=== PATIENT | female | born 1965 | race African-American/Black ===

== ENCOUNTER 2017-05-15 08:34 | Inpatient (IN) | payer MEDICAID ==
[~2017-05-15] VITALS: Ht 165.1 cm; Wt 102.3 kg
[2017-05-15] MEDS ORDERED: LISI-167 PO (09:26)
[2017-05-15] MEDS ORDERED: FUROSEMIDE 20 MG TABLET PO ONE (09:26)
[2017-05-15] MEDS ORDERED: FUROSEMIDE 20 MG TABLET ONE (09:32)
[2017-05-15 09:38] LABS: BASOPHILS # (AUTO) 0.02 x10^3/uL (0-0.1); BASOPHILS % (AUTO) 0 % (0-1); EOSINOPHILS # (AUTO) 0.17 x10^3/uL (0-0.4); EOSINOPHILS % (AUTO) 3 % (1-7); LYMPHOCYTES % (AUTO) 35 % (22-44); MD NO; MEAN CORPUSCULAR HGB CONC 32.7 g/dL (32.4-35.8); MEAN CORPUSCULAR VOLUME 85.4 fL (80-100); MONOCYTES # (AUTO) 0.37 x10^3/uL (0.2-0.8); MONOCYTES % (AUTO) 6 % (2-9); NEUTROPHILS # (AUTO) 3.24 x10^3/uL (1.8-6.8); NEUTROPHILS % (AUTO) 56 % (42-75); PLATELET COUNT 266 x10^3/uL (130-400); RED BLOOD COUNT 4.23 x10^6/uL (3.82-5.3); RED CELL DISTRIBUTION WIDTH 14.8 % (9.6-15.2)
[2017-05-15 09:50] LABS: ALBUMIN 2.9 g/dL (3.4-5.0); ANION GAP 6 mmol/L (5-15); CALCIUM 8.6 mg/dL (8.5-10.1); CHLORIDE 106 mmol/L (98-107); CREATININE 1.33 mg/dL (0.55-1.02)
[2017-05-15 10:02] LABS: MICROSCOPIC INDICATED
[2017-05-15 10:03] LABS: CULTURE INDICATED? YES
[2017-05-15] MEDS ORDERED: CEFTRIAXONE PMX 1GM/50ML 50 ML IV ONE (12:39)
[2017-05-15] MEDS ORDERED: CEFTRIAXONE PMX 1GM/50ML 50 ML ONE (12:50)
[2017-05-15] MEDS ORDERED: SODIUM CHLORIDE 0.9% 1,000 ML IV SCH (12:59)
[2017-05-15] MEDS ORDERED: POLYETHYLENE GLYCOL 17 GM PACKET PO PRN (13:00)
[2017-05-15] MEDS ORDERED: ONDANSETRON 2MG/ML, 2ML IVPush PRN (13:00)
[2017-05-15] MEDS ORDERED: LABETALOL 5MG/ML, 20ML IVPush PRN (13:00)
[2017-05-15] MEDS ORDERED: DOCUSATE 100 MG CAPSULE PO PRN (13:00)
[2017-05-15] MEDS ORDERED: morphine SULFATE 10 MG/ML, 1ML IVPush PRN (13:00)
[2017-05-15] MEDS: CEFTRIAXONE PMX 1GM/50ML 50 ML IV SCH (13:07)
[2017-05-15] MEDS ORDERED: ENOXAPARIN 40 MG/0.4 ML ONE (13:11)
[2017-05-15] MEDS: ENOXAPARIN 40 MG/0.4 ML SQ SCH (13:33)
[2017-05-15 14:45] VITALS: BP 148/82
[2017-05-15 15:50] VITALS: BP 168/98
[2017-05-15] MEDS: METOPROLOL TARTRATE 25 MG TABLET PO SCH (18:36)
[2017-05-15 19:52] VITALS: BP 117/73
[2017-05-16] VITALS (7 sets, daily range): BP systolic 94–171; BP diastolic 63–98
[2017-05-16] MEDS: ACETAMINOPHEN 325 MG TABLET PO PRN (00:22)
[2017-05-16] MEDS: METOPROLOL TARTRATE 25 MG TABLET PO SCH ×2 (04:22→17:55)
[2017-05-16 05:21] LABS: ANION GAP 5 mmol/L (5-15); CALCIUM 8.3 mg/dL (8.5-10.1); CHLORIDE 110 mmol/L (98-107)
[2017-05-16 05:32] LABS: CREATININE 1.09 mg/dL (0.55-1.02)
[2017-05-16] MEDS ORDERED: MIDAZOLAM 1 MG/ML, 5ML ONE (07:34)
[2017-05-16] MEDS ORDERED: NALOXONE 1 MG/ML, 2ML ONE (07:34)
[2017-05-16] MEDS ORDERED: FENTANYL PF 100 MCG/2ML ONE (07:34)
[2017-05-16] MEDS ORDERED: FLUMAZENIL 0.1 MG/1 ML, 5ML ONE (07:34)
[2017-05-16] MEDS: SENNA/DOCUSATE TABLET PO SCH (10:31)
[2017-05-16] MEDS: CEFTRIAXONE PMX 1GM/50ML 50 ML IV SCH (12:43)
[2017-05-16] MEDS: ENOXAPARIN 40 MG/0.4 ML SQ SCH (13:00)
[2017-05-17 01:12] VITALS: BP 105/66
[2017-05-17 05:42] VITALS: BP 121/75
[2017-05-17] MEDS: METOPROLOL TARTRATE 25 MG TABLET PO SCH ×2 (05:43→17:18)
[2017-05-17 07:05] VITALS: BP 120/79
[2017-05-17] MEDS: SENNA/DOCUSATE TABLET PO SCH (08:25)
[2017-05-17] MEDS: ENOXAPARIN 40 MG/0.4 ML SQ SCH (13:20)
[2017-05-17] MEDS: CEFTRIAXONE PMX 1GM/50ML 50 ML IV SCH (13:20)
[2017-05-17] MEDS: ACETAMINOPHEN 325 MG TABLET PO PRN (13:25)
[2017-05-17] MEDS ORDERED: MORPHINE SULFATE 4 MG/ML, 1ML IVPush PRN (14:26)
[2017-05-17 16:51] VITALS: BP_SYST 147; BP_SYST 152; BP_DIAS 83; BP_DIAS 87
[2017-05-17 19:09] VITALS: BP 158/83
[2017-05-18 01:04] VITALS: BP 171/78
[2017-05-18] MEDS: METOPROLOL TARTRATE 25 MG TABLET PO SCH ×2 (06:13→18:15)
[2017-05-18] MEDS ORDERED: MIDAZOLAM 1 MG/ML, 2ML ONE (07:31)
[2017-05-18] MEDS ORDERED: FENTANYL PF 100 MCG/2ML ONE ×2 (07:31→09:30)
[2017-05-18 07:35] VITALS: BP 181/110
[2017-05-18] MEDS ORDERED: DEXAMETHASONE 4 MG/ML, 1ML ONE (07:35)
[2017-05-18] MEDS ORDERED: PROPOFOL 10 MG/ML, 20ML ONE (07:35)
[2017-05-18] MEDS ORDERED: OXYcodone 5 MG/5 ML ORAL.SOL UDC PO PRN (08:00)
[2017-05-18] MEDS ORDERED: PROMETHAZINE 25 MG/ML, 1ML IV PRN (08:00)
[2017-05-18] MEDS ORDERED: morphine SULFATE 10 MG/ML, 1ML IV PRN (08:00)
[2017-05-18] MEDS ORDERED: ONDANSETRON 2MG/ML, 2ML IVPush PRN (08:00)
[2017-05-18] MEDS ORDERED: ACETAMINOPHEN 325 MG TABLET PO PRN (08:00)
[2017-05-18] MEDS ORDERED: MIDAZOLAM 1 MG/ML, 2ML IV PRN (08:00)
[2017-05-18] MEDS ORDERED: LORazepam 2 MG/ML, 1ML IVPush PRN (08:00)
[2017-05-18] MEDS ORDERED: ALBUTEROL/IPRATROPIUM 2.5MG/0.5MG, 3 ML NPPB PRN (08:00)
[2017-05-18] MEDS ORDERED: DIAZEPAM 5 MG/ML, 2ML IVPush PRN (08:00)
[2017-05-18] MEDS: SENNA/DOCUSATE TABLET PO SCH (09:00)
[2017-05-18] MEDS ORDERED: GADOBUTROL 10 MMOL/10 ML PFS ONE (09:04)
[2017-05-18] MEDS ORDERED: LABETALOL 5MG/ML, 20ML ONE (09:05)
[2017-05-18] MEDS: LABETALOL 5MG/ML, 20ML IV PRN ×2 (09:07→09:16)
[2017-05-18] MEDS ORDERED: hydrALAzine 20 MG/ML, 1ML ONE ×2 (09:20→09:46)
[2017-05-18] MEDS: hydrALAzine 20 MG/ML, 1ML IV PRN ×3 (09:22→09:48)
[2017-05-18] MEDS: FENTANYL PF 100 MCG/2ML IV PRN ×2 (09:31→09:37)
[2017-05-18] MEDS ORDERED: ACETAMINOPHEN 650 MG/20.3 ML UDC ONE (09:32)
[2017-05-18] MEDS: CEFTRIAXONE PMX 1GM/50ML 50 ML IV SCH (13:28)
[2017-05-18] MEDS: HYDROcodone/APAP 5/325 TABLET PO PRN ×2 (13:28→18:15)
[2017-05-18] MEDS: ENOXAPARIN 40 MG/0.4 ML SQ SCH (13:28)
[2017-05-18 14:04] VITALS: BP 124/70
[2017-05-18 19:07] VITALS: BP 122/75
[2017-05-19 01:36] VITALS: BP 143/82
[2017-05-19 06:15] VITALS: BP 160/96
[2017-05-19] MEDS: METOPROLOL TARTRATE 25 MG TABLET PO SCH ×2 (06:16→18:13)
[2017-05-19 07:40] VITALS: BP 162/88
[2017-05-19] MEDS: SENNA/DOCUSATE TABLET PO SCH (09:22)
[2017-05-19] MEDS: CEFTRIAXONE PMX 1GM/50ML 50 ML IV SCH (13:20)
[2017-05-19] MEDS: ENOXAPARIN 40 MG/0.4 ML SQ SCH (13:20)
[2017-05-19 15:44] VITALS: BP 183/103
[2017-05-19 16:28] VITALS: BP 176/104
[2017-05-19] MEDS: LISINOPRIL 10 MG TABLET PO SCH (17:23)
[2017-05-19 20:24] VITALS: BP 168/98
[2017-05-20 02:16] VITALS: BP 170/80
[2017-05-20 06:02] VITALS: BP 174/81
[2017-05-20] MEDS: METOPROLOL TARTRATE 25 MG TABLET PO SCH ×2 (06:04→17:46)
[2017-05-20] MEDS: AMLODIPINE 5 MG TABLET PO SCH (11:12)
[2017-05-20] MEDS: LISINOPRIL 10 MG TABLET PO SCH (11:12)
[2017-05-20] MEDS: SENNA/DOCUSATE TABLET PO SCH (11:14)
[2017-05-20] MEDS: ENOXAPARIN 40 MG/0.4 ML SQ SCH (13:00)
[2017-05-20] MEDS: CEFTRIAXONE PMX 1GM/50ML 50 ML IV SCH (13:16)
[2017-05-20 17:15] VITALS: BP 144/82
[2017-05-20 19:13] VITALS: BP 137/78
[2017-05-21 01:10] VITALS: BP 156/87
[2017-05-21 05:38] LABS: ALBUMIN 2.4 g/dL (3.4-5.0); ANION GAP 7 mmol/L (5-15); CHLORIDE 108 mmol/L (98-107)
[2017-05-21] MEDS: METOPROLOL TARTRATE 25 MG TABLET PO SCH ×2 (06:17→18:09)
[2017-05-21 06:40] VITALS: BP 189/100
[2017-05-21 07:50] VITALS: BP 178/103
[2017-05-21] MEDS: SENNA/DOCUSATE TABLET PO SCH (10:12)
[2017-05-21] MEDS: LISINOPRIL 10 MG TABLET PO SCH (10:12)
[2017-05-21] MEDS: AMLODIPINE 5 MG TABLET PO SCH (10:13)
[2017-05-21 10:25] VITALS: BP 150/84
[2017-05-21 12:05] VITALS: BP 164/88
[2017-05-21] MEDS: CEFTRIAXONE PMX 1GM/50ML 50 ML IV SCH (14:16)
[2017-05-21] MEDS: ENOXAPARIN 40 MG/0.4 ML SQ SCH (14:16)
[2017-05-21 18:55] VITALS: BP 162/94
[2017-05-22 01:10] VITALS: BP 167/85
[2017-05-22] MEDS: METOPROLOL TARTRATE 25 MG TABLET PO SCH ×2 (05:25→18:03)
[2017-05-22 06:59] VITALS: BP 161/95
[2017-05-22] MEDS ORDERED: ACET325T14 PO (08:23)
[2017-05-22] MEDS ORDERED: POLY17PO5 PO (08:23)
[2017-05-22] MEDS ORDERED: METO25TA35 PO (08:23)
[2017-05-22] MEDS ORDERED: LISI-167 PO (08:23)
[2017-05-22] MEDS ORDERED: AMLO5TAB2 PO (08:23)
[2017-05-22] MEDS ORDERED: ENOX40SY4 SQ (08:23)
[2017-05-22] MEDS: SENNA/DOCUSATE TABLET PO SCH (09:00)
[2017-05-22] MEDS: AMLODIPINE 5 MG TABLET PO SCH (09:39)
[2017-05-22] MEDS: LISINOPRIL 10 MG TABLET PO SCH (09:40)
[2017-05-22 12:28] VITALS: BP 152/82
[2017-05-22] MEDS: ENOXAPARIN 40 MG/0.4 ML SQ SCH (14:22)
[2017-05-22 18:42] VITALS: BP 149/79
[2017-05-23 01:46] VITALS: BP 163/93
[2017-05-23] MEDS: METOPROLOL TARTRATE 25 MG TABLET PO SCH ×2 (06:32→17:48)
[2017-05-23 07:39] VITALS: BP 180/84
[2017-05-23] MEDS: hydrALAzine 20 MG/ML, 1ML IV PRN (08:18)
[2017-05-23] MEDS: AMLODIPINE 5 MG TABLET PO SCH (08:23)
[2017-05-23] MEDS: SENNA/DOCUSATE TABLET PO SCH (08:23)
[2017-05-23] MEDS: LISINOPRIL 10 MG TABLET PO SCH (08:23)
[2017-05-23 09:44] VITALS: BP 137/64
[2017-05-23 12:20] VITALS: BP 122/75
[2017-05-23] MEDS: ENOXAPARIN 40 MG/0.4 ML SQ SCH (14:02)
[2017-05-23 20:00] VITALS: BP 152/87
[2017-05-24 02:20] VITALS: BP 171/90
[2017-05-24 03:35] VITALS: BP 155/80
[2017-05-24 05:12] LABS: BASOPHILS # (AUTO) 0.03 x10^3/uL (0-0.1); BASOPHILS % (AUTO) 0 % (0-1); EOSINOPHILS % (AUTO) 0 % (1-7); LYMPHOCYTES % (AUTO) 9 % (22-44); MD NO; MEAN CORPUSCULAR HEMOGLOBIN 28.9 pg (27.0-34.8); MEAN CORPUSCULAR HGB CONC 33.4 g/dL (32.4-35.8); MEAN CORPUSCULAR VOLUME 86.4 fL (80-100); MEAN PLATELET VOLUME 9.5 fL (7.4-10.4); MONOCYTES % (AUTO) 6 % (2-9); NEUTROPHILS # (AUTO) 9.93 x10^3/uL (1.8-6.8); NEUTROPHILS % (AUTO) 85 % (42-75); PLATELET COUNT 276 x10^3/uL (130-400); RED BLOOD COUNT 4.23 x10^6/uL (3.82-5.3)
[2017-05-24 05:25] LABS: ANION GAP 4 mmol/L (5-15); CALCIUM 7.6 mg/dL (8.5-10.1); CHLORIDE 107 mmol/L (98-107)
[2017-05-24 06:07] VITALS: BP 188/99
[2017-05-24] MEDS: hydrALAzine 20 MG/ML, 1ML IV PRN (06:18)
[2017-05-24] MEDS: METOPROLOL TARTRATE 25 MG TABLET PO SCH ×2 (06:19→17:41)
[2017-05-24 07:25] VITALS: BP 134/79
[2017-05-24] MEDS: AMLODIPINE 5 MG TABLET PO SCH (08:35)
[2017-05-24] MEDS: ACETAMINOPHEN 325 MG TABLET PO PRN (08:35)
[2017-05-24] MEDS: LISINOPRIL 10 MG TABLET PO SCH (08:37)
[2017-05-24] MEDS: SENNA/DOCUSATE TABLET PO SCH (08:38)
[2017-05-24] MEDS: ENOXAPARIN 40 MG/0.4 ML SQ SCH (13:11)
[2017-05-24 14:27] VITALS: BP 110/68
[2017-05-24 20:00] VITALS: BP 149/77
[2017-05-25 02:00] VITALS: BP 131/79
[2017-05-25 04:51] LABS: BASOPHILS # (AUTO) 0.05 x10^3/uL (0-0.1); BASOPHILS % (AUTO) 1 % (0-1); EOSINOPHILS % (AUTO) 0 % (1-7); LYMPHOCYTES % (AUTO) 15 % (22-44); MD NO; MEAN CORPUSCULAR HEMOGLOBIN 28.6 pg (27.0-34.8); MEAN CORPUSCULAR VOLUME 86.5 fL (80-100); MEAN PLATELET VOLUME 8.8 fL (7.4-10.4); MONOCYTES # (AUTO) 0.31 x10^3/uL (0.2-0.8); MONOCYTES % (AUTO) 3 % (2-9); NEUTROPHILS # (AUTO) 8.54 x10^3/uL (1.8-6.8); NEUTROPHILS % (AUTO) 81 % (42-75); PLATELET COUNT 272 x10^3/uL (130-400); RED BLOOD COUNT 4.27 x10^6/uL (3.82-5.3); RED CELL DISTRIBUTION WIDTH 15.5 % (9.6-15.2)
[2017-05-25 05:03] LABS: ANION GAP 5 mmol/L (5-15); CALCIUM 7.5 mg/dL (8.5-10.1); CHLORIDE 108 mmol/L (98-107); CREATININE 0.79 mg/dL (0.55-1.02)
[2017-05-25] MEDS: METOPROLOL TARTRATE 25 MG TABLET PO SCH (05:42)
[2017-05-25 05:43] VITALS: BP 154/88
[2017-05-25 07:10] VITALS: BP 154/73
[2017-05-25] MEDS ORDERED: PRED20TA PO (08:56)
[2017-05-25] MEDS: SENNA/DOCUSATE TABLET PO SCH (09:00)
[2017-05-25] MEDS: AMLODIPINE 5 MG TABLET PO SCH (09:09)
[2017-05-25] MEDS: LISINOPRIL 10 MG TABLET PO SCH (09:09)
== END 2017-05-25 11:08 | disposition home or self-care (01) | DRG 58 ==
LOC: ED 09:25 → SUATTDRO 12:42 → EDIP 12:59 → 3NE 14:00
PROVIDERS: ADMIT Family Medicine; ATTEND Family Medicine
DX: G35 Multiple sclerosis (principal); E43 Unspecified severe protein-calorie malnutrition; N17.0 Acute kidney failure with tubular necrosis; R53.2 Functional quadriplegia; N30.90 Cystitis, unspecified without hematuria; B96.20 Unspecified Escherichia coli [E. coli] as the cause of diseases classified elsewhere; G89.29 Other chronic pain; G51.0 Bell's palsy; I10 Essential (primary) hypertension; I07.1 Rheumatic tricuspid insufficiency; F40.240 Claustrophobia; Z82.0 Family history of epilepsy and other diseases of the nervous system; Z99.3 Dependence on wheelchair; Z79.1 Long term (current) use of non-steroidal anti-inflammatories (NSAID); Z79.899 Other long term (current) drug therapy; Z79.2 Long term (current) use of antibiotics; Z68.37 Body mass index [BMI] 37.0-37.9, adult; Z88.0 Allergy status to penicillin
CPT/HCPCS: 36415; 70551; 70553; 72156; 80048; 81001; 82040; 83735; 83880; 84100; 84443; 85025; 87077; 87086; 87186; 93005; 93306; 96365; 96372; 99156; 99157; A9585; J0696; J1100; J1650; J2250; J2405; J2704; J2930; J3010; J0360; J2310; J7030; J7512